=== PATIENT | female | born 1935 | race Caucasian/White ===

== ENCOUNTER 2019-12-17 18:15 | Emergency (ER) | payer MEDICARE, BC ==
[~2019-12-17] VITALS: Ht 149.9 cm; Wt 74.1 kg
[2019-12-17 19:51] LABS: BASOPHILS % (AUTO) 0.2 % (0-1); EOSINOPHILS % (AUTO) 0.1 % (0-6); HEMATOCRIT 45.7 % (35.0-45.0); HEMOGLOBIN 14.7 g/dl (12.0-16.0); LYMPHOCYTES # (AUTO) 0.5 X10'3 (1.1-4.8); LYMPHOCYTES % (AUTO) 3.3 % (21-51); MEAN CORPUSCULAR HEMOGLOBIN 25.7 PG (27.0-31.0); MEAN CORPUSCULAR HGB CONC 32.1 g/dL (33.0-36.5); MEAN CORPUSCULAR VOLUME 80.2 FL (78-98); MEAN PLATELET VOLUME 8.5 FL (7.4-10.4); MONOCYTES # (AUTO) 0.9 X10'3 (0-0.9); MONOCYTES % (AUTO) 6.2 % (2-12); NEUTROPHILS # (AUTO) 13.3 X10'3 (1.8-7.7); NEUTROPHILS % (AUTO) 90.2 % (42-75); PLATELET COUNT 205 X10'3 (140-440); RED CELL DISTRIBUTION WIDTH 17.5 % (11.5-14.5); WHITE BLOOD COUNT 14.7 X10'3 (4.5-11.0)
[2019-12-17 20:09] LABS: ALANINE AMINOTRANSFERASE 24 U/L (12-78); ALBUMIN 3.8 G/DL (3.4-5.0); ALKALINE PHOSPHATASE 118 IU/L (46-116); ANION GAP 8 (8-16); ASPARTATE AMINO TRANSFERASE 18 U/L (10-37); BILIRUBIN,TOTAL 0.5 MG/DL (0.1-1.0); BLOOD UREA NITROGEN 22 MG/DL (7-18); BUN/CREATININE RATIO 22.9 (6.6-38.0); CALCIUM 10.1 MG/DL (8.5-10.1); CHLORIDE 104 MMOL/L (99-107); CREATININE 0.96 MG/DL (0.40-0.90); GLUCOSE 143 MG/DL (70-104); POTASSIUM 4.1 MMOL/L (3.5-5.1); SODIUM 139 MMOL/L (135-145); TOTAL CARBON DIOXIDE 26.6 MMOL/L (24-32); TOTAL PROTEIN 7.6 G/DL (6.4-8.2); eGFR 56 ML/MIN
--- NOTE | 2019-12-17 21:06 | NUR ---
Pt stated it was okay to talk about condition with relative, "Karolina". Karolina is also her ride [phone]
[2019-12-17 22:16] VITALS: BP 153/87
== END 2019-12-17 22:18 | disposition home or self-care (01) ==
LOC: ER 18:15
DX: S29.012A Strain of muscle and tendon of back wall of thorax, initial encounter (principal); R11.10 Vomiting, unspecified; Z88.0 Allergy status to penicillin; Z88.2 Allergy status to sulfonamides; X58.XXXA Exposure to other specified factors, initial encounter; Y93.89 Activity, other specified; Y92.89 Other specified places as the place of occurrence of the external cause; Y99.8 Other external cause status
CPT/HCPCS: 36415; 71045; 80053; 83735; 84484; 85025; 93005; 99285

== ENCOUNTER 2021-02-01 11:02 | Emergency (ER) | payer MEDICARE, BC ==
[~2021-02-01] VITALS: Ht 149.9 cm; Wt 62.7 kg
[2021-02-01 11:05] VITALS: BP 134/57
--- NOTE | 2021-02-01 12:50 | NUR ---
TC FROM DAUGHTER, MELANIE, FOR CONDITION REPORT. MELANIE INFORMED THAT PATIENT WILL BE DC READY IN APPROX 30 MINUTES. PATIENT AMBULATED INDEPENDENTLY FOR 12 FEET WITH WALKER AND TOLERATED WELL.
== END 2021-02-01 13:39 | disposition home or self-care (01) ==
LOC: ER 11:03
DX: S70.02XA Contusion of left hip, initial encounter (principal); I48.91 Unspecified atrial fibrillation; I11.0 Hypertensive heart disease with heart failure; I50.9 Heart failure, unspecified; J44.9 Chronic obstructive pulmonary disease, unspecified; Z88.2 Allergy status to sulfonamides; Z88.0 Allergy status to penicillin; Z79.01 Long term (current) use of anticoagulants; W19.XXXA Unspecified fall, initial encounter; Z91.81 History of falling; Y93.89 Activity, other specified; Y92.89 Other specified places as the place of occurrence of the external cause; Y99.8 Other external cause status
CPT/HCPCS: 73502; 99284

== ENCOUNTER 2021-02-15 09:30 | Day surgery (SDC) | payer MEDICARE, BC ==
[~2021-02-15] VITALS: Ht 149.9 cm; Wt 60.0 kg
[2021-02-15 09:50] VITALS: BP 134/67
[2021-02-15] MEDS ORDERED: AMLO5TAB PO (10:01)
[2021-02-15] MEDS ORDERED: DIGO250T PO (10:02)
[2021-02-15] MEDS ORDERED: CHOL20002 PO (10:02)
[2021-02-15] MEDS ORDERED: FURO40TA4 PO (10:03)
[2021-02-15] MEDS ORDERED: OMEP40CA21 PO (10:04)
[2021-02-15] MEDS ORDERED: POTA-205 PO (10:05)
[2021-02-15] MEDS ORDERED: BUDE10.2 INH (10:06)
[2021-02-15] MEDS ORDERED: ZINC220C7 PO (10:07)
[2021-02-15] MEDS ORDERED: RIVA20TA PO (10:07)
[2021-02-15] MEDS ORDERED: ASCO-407 PO (10:08)
[2021-02-15] MEDS ORDERED: CRAN1CAP5 PO (10:09)
[2021-02-15] MEDS ORDERED: IPRA3AMP9 IH (10:10)
[2021-02-15] MEDS ORDERED: fentaNYL/PF 50MCG/1 ML 2ML syringe ONE (10:52)
[2021-02-15] MEDS ORDERED: LIDOcaine Viscous 15ml cup ONE (10:53)
[2021-02-15] MEDS ORDERED: MIDAZolam 1 MG/ML 5ML VIAL ONE (10:53)
[2021-02-15 11:14] VITALS: BP 129/68
[2021-02-15 11:22] VITALS: BP 123/70
[2021-02-15 11:32] VITALS: BP 117/58
[2021-02-15 11:42] VITALS: BP 120/63
[2021-02-15 11:46] VITALS: BP 122/72
== END 2021-02-15 12:00 | disposition home or self-care (01) ==
LOC: GI LAB 09:30
PROVIDERS: ATTEND Internal Medicine Gastroenterology
DX: R12 Heartburn (principal); K92.1 Melena; K21.9 Gastro-esophageal reflux disease without esophagitis; K44.9 Diaphragmatic hernia without obstruction or gangrene; K29.60 Other gastritis without bleeding; J44.9 Chronic obstructive pulmonary disease, unspecified; Z87.891 Personal history of nicotine dependence; Z79.899 Other long term (current) drug therapy
CPT/HCPCS: 43239; 88305; 88342; G0500; J2250; J3010; J7040; Z7512; 99152; A4620

== ENCOUNTER 2024-06-15 08:23 | Emergency (ER) | payer MEDICARE, BC ==
[~2024-06-15] VITALS: Ht 149.9 cm; Wt 72.0 kg
[~2024-06-15 08:23] MED LIST: AMLO5TAB PO; ASCO-407 PO; BUDE10.2 INH; CHOL20002 PO; CRAN1CAP5 PO; DIGO250T PO; FURO40TA4 PO; IPRA3AMP9 IH; OMEP40CA21 PO; POTA-205 PO; RIVA20TA PO; ZINC220C7 PO
[2024-06-15 08:31] VITALS: RESP 18
[2024-06-15] MEDS: LIDOcaine 1% W/epiNEPHrine 1:100,000 20ml vial SQ ONE ×2 (09:05→13:20)
[2024-06-15 12:00] VITALS: BP 125/73; PULSE 88; TEMP 98.3; O2SAT 98
[2024-06-15] MEDS ORDERED: OXYC-658 PO (14:53)
== END 2024-06-15 17:54 | disposition home or self-care (01) ==
LOC: ER 08:23
DX: S52.502A Unspecified fracture of the lower end of left radius, initial encounter for closed fracture (principal); S52.615A Nondisplaced fracture of left ulna styloid process, initial encounter for closed fracture; I11.0 Hypertensive heart disease with heart failure; I48.91 Unspecified atrial fibrillation; I50.9 Heart failure, unspecified; J44.9 Chronic obstructive pulmonary disease, unspecified; Z88.0 Allergy status to penicillin; Z88.2 Allergy status to sulfonamides; Z88.8 Allergy status to other drugs, medicaments and biological substances; W01.0XXA Fall on same level from slipping, tripping and stumbling without subsequent striking against object, initial encounter; Y93.89 Activity, other specified; Y92.89 Other specified places as the place of occurrence of the external cause; Y99.8 Other external cause status
CPT/HCPCS: 12002; 25605; 73100; 73110; 99285; A4565; A6446; A6449; Z7610